=== PATIENT | female | born 1990 | race Caucasian/White ===

== ENCOUNTER → 2017-07-04 | Outpatient (CLI) | payer OTHER ==
[~2017-07-04] MED LIST: PREN29TA PO
== END ==
LOC: HPND 09:24
PROVIDERS: ATTEND Family Medicine
DX: Z36.2 Encounter for other antenatal screening follow-up (principal)
CPT/HCPCS: 76805

== ENCOUNTER 2017-07-20 10:39 | Emergency (ER) | payer OTHER ==
--- NOTE | 2017-07-20 11:41 | PD ---
HPI Chief Complaint dizziness Date Seen: Jul 20, 2017 Time Seen: 11:00 Travel History International Travel<30 Days: No Contact w/Intl Traveler<30Days: No Known Affected Area: No History of Present Illness HPI Mrs. Weiner is a at 30/0 weeks gestation presenting today due to concerns about dizziness. She states that yesterday evening she felt dizzy. She subsequently laid down and felt paralyzed. She states that the room was spinning. No tinnitus. States that this has never happened to her before. After her gave her a brownie she was able to sit up and the dizziness subsided. She also states that she has muscle cramps in her sides and in her legs. She has felt weak and tired. She endorses nausea, but no vomiting. No contractions, no vaginal bleeding, no dysuria, no chest pain, no shortness of breath. Positive movement. Weeks Gestation: 30 Para: 4 : 6 History Past Medical History Medical History: Denies Significant Hx Obstetric History Obstetric History all spontaneous in 2011 Past Surgical History Narrative Surgical [place] teeth extraction Family History Narrative Family History Mother- schizophrenia, Bipolar disorder, Hepatitis C, COPD, seizures Father- unsure of medical hx Social History Narrative Social History Lives with and kids Stay at home mom Denies alcohol, tobacco, or illicit drug use Alcohol Use: No Tobacco Use: No Substance Abuse: No Allergies-Medications (Allergen,Severity, Reaction): Coded Allergies: Penicillins (Verified Allergy, Severe, Anaphylaxis, 06/21/17) Uncoded Allergies: cillins (Allergy, Severe, Anaphylaxis, 06/21/17) Home Meds Active Scripts Vit-Iron Carbonyl ( Plus Iron 29-1 mg) 29 Mg Iron-1 Mg Tab, 1 TAB PO DAILY for Nutritional Supplement, #30 TAB 0 Refills Prov:Isma Grubbs MD, R3 06/30/17 Review of Systems General / Constitutional: No: Fever, Chills Eyes: No: Blurred Vision HENT: Vertigo, Lightheadedness Cardiovascular: No: Chest Pain or Discomfort Respiratory: No: Short of Breath Gastrointestinal: Nausea, No: Vomiting Genitourinary: No: Dysuria, Vaginal Bleeding Neurologic: Weakness, Dizziness, No: Syncope Physical Exam Narrative GENERAL: Well-nourished, well-developed patient. SKIN: Warm and dry. HEAD: Normocephalic and atraumatic. EYES: No scleral icterus. No injection or drainage. ENT: No nasal drainage noted. Mucous membranes pink. Airway patent. NECK: Supple, trachea midline. No JVD. CARDIOVASCULAR: Regular rate and rhythm without murmurs, gallops, or rubs. RESPIRATORY: Breath sounds equal bilaterally. No accessory muscle use. BREASTS: Bilateral exam showed no masses , no retractions, no nipple discharge. ABDOMEN/GI: Abdomen soft, non-tender, bowel sounds present, no rebound, no guarding Gravid to 30 weeks size FHT's: Category: 1 Baseline: 140s Reactive: yes Variability: moderate Decels: none EXTREMITIES: No cyanosis or edema. BACK: Nontender without obvious deformity. No CVA tenderness. NEUROLOGICAL: Awake and alert. Motor and sensory grossly within normal limits. Five out of 5 muscle strength in all muscle groups. Normal speech. Data Data Vital Signs Reviewed: Yes [facility] Medical Record Reviewed: Yes Plan Mrs. Weiner is a 26yo at 30/0 weeks gestation presenting with dizziness. Description of episode points to hypoglycemic origin vs vertigo Bedside glucose is 93. Orthostatic BPs: supine 125/78, standing 121/77 Urine dip is positive for trace ketones and protein of 30mg/dl FHT showing category 1 tracing. HR in the 150s -Will give oral hydration in the ED along with a snack -Zofran 4mg po ODT for nausea in the ED Will give a Rx for home Diagnosis Diagnosis: Primary Impression: Dizziness Additional Impression: 30 weeks gestation of Disposition: DISCHARGE HOME Condition: Stable Scripts Ondansetron Odt (Ondansetron Odt) 4 Mg Tab 4 MG SL Q6HR Y for Nausea/Vomiting, #30 TAB 0 Refills Prov: Norma Marrufo MD R1 07/20/17 Norma Marrufo MD R1 Jul 20, 2017 11:40
[2017-07-20] MEDS ORDERED: ONDANSETRON ODT 4 MG TAB PO ONE (11:45)
[2017-07-20] MEDS ORDERED: ONDA4TAB7 SL (11:52)
== END 2017-07-20 12:26 | disposition home or self-care (01) ==
LOC: HOBED 10:39
DX: O26.893 Other specified pregnancy related conditions, third trimester (principal); R42 Dizziness and giddiness; Z3A.30 30 weeks gestation of pregnancy
CPT/HCPCS: 82948; 99283

== ENCOUNTER 2017-08-17 20:46 | Emergency (ER) | payer OTHER ==
[~2017-08-17 20:46] MED LIST changes: +ONDA4TAB7 SL
--- NOTE | 2017-08-17 22:27 | PD ---
HPI Chief Complaint ctxs Date Seen: Aug 17, 2017 Time Seen: 22:20 Travel History International Travel<30 Days: No Contact w/Intl Traveler<30Days: No Known Affected Area: No History of Present Illness HPI pt. is a 26 y/o @ 34 weeks present w/ c/o ctxs. pt. states for last week having intermittent ctxs. ctxs now q14 min. some painful. +FM, no lof, some spotting. pt. cervix checked by nursing /igh/post. Weeks Gestation: 34 Para: 4 : 6 History Obstetric History Obstetric History , s/p x4, sab x 1 Past Surgical History Surgical History: No Previous Surgery Family History Family History: Negative Social History Alcohol Use: No Tobacco Use: No Substance Abuse: No Allergies-Medications (Allergen,Severity, Reaction): Coded Allergies: Penicillins (Verified Allergy, Severe, Anaphylaxis, 06/21/17) Uncoded Allergies: cillins (Allergy, Severe, Anaphylaxis, 06/21/17) Home Meds Active Scripts Ondansetron Odt (Ondansetron Odt) 4 Mg Tab, 4 MG SL Q6HR Y for Nausea/Vomiting, #30 TAB 0 Refills Prov:Norma Marrufo MD R1 07/20/17 Vit-Iron Carbonyl ( Plus Iron 29-1 mg) 29 Mg Iron-1 Mg Tab, 1 TAB PO DAILY for Nutritional Supplement, #30 TAB 0 Refills Prov:Isma Grubbs MD, R3 06/30/17 Review of Systems Except as stated in HPI: all other systems reviewed are Neg Physical Exam Narrative GENERAL: Well-nourished, well-developed patient. SKIN: Warm and dry. HEAD: Normocephalic and atraumatic. EYES: No scleral icterus. No injection or drainage. ENT: No nasal drainage noted. Mucous membranes pink. Airway patent. NECK: Supple, trachea midline. No JVD. CARDIOVASCULAR: Regular rate and rhythm without murmurs, gallops, or rubs. RESPIRATORY: Breath sounds equal bilaterally. No accessory muscle use. BREASTS: Bilateral exam showed no masses , no retractions, no nipple discharge. ABDOMEN/GI: Abdomen soft, non-tender, bowel sounds present, no rebound, no guarding Gravid GENITOURINARY: External Genitalia: intact and normal in appearance Cervix:posterior Dilatation: 1 Effacement: 50 Station:high Membranes:intact Uterine Contractions: irreg FHT's: Category:1 Reactive:+ Variability:mod Decels: none EXTREMITIES: No cyanosis or edema. BACK: Nontender without obvious deformity. No CVA tenderness. NEUROLOGICAL: Awake and alert. Motor and sensory grossly within normal limits. Five out of 5 muscle strength in all muscle groups. Normal speech. Data Data Vital Signs Reviewed: Yes [facility] Medical Record Reviewed: Yes Plan pt. is @ 34 weeks w/ ctxs not in labor. condition d/w pt. all ? answered. pt. to be d/c to home. pt. given precautions for return. all ? answered. f/u as sched. Diagnosis Diagnosis: Primary Impression: False labor before 37 completed weeks of gestation during in second trimester, antepartum Additional Impression: 34 weeks gestation of Disposition: 01 DISCHARGE HOME Vipin Sevilla Jr., MD Aug 17, 2017 22:27
== END 2017-08-17 23:32 | disposition home or self-care (01) ==
LOC: HOBED 20:46
DX: O47.03 False labor before 37 completed weeks of gestation, third trimester (principal); O26.853 Spotting complicating pregnancy, third trimester; Z3A.34 34 weeks gestation of pregnancy
CPT/HCPCS: 99284

== ENCOUNTER 2017-09-02 08:23 | Emergency (ER) | payer OTHER ==
--- NOTE | 2017-09-02 09:08 | PD ---
HPI Chief Complaint Abdominal pain, nausea, vomiting, leg cramps Date Seen: Sep 02, 2017 Time Seen: 08:56 Travel History International Travel<30 Days: No Contact w/Intl Traveler<30Days: No History of Present Illness HPI Patient is a 26-year-old at 36 weeks, EDC 09/27/17, who presents to the OB ED with one episode of vomiting, some contractions since July which have become more constant since 4 AM, and leg cramps. She has a medical history significant for iron deficiency anemia. has been uncomplicated and her PCP is Dr. Kirit Sanchez. She denies loss of fluid and vaginal bleeding. She states the contractions occur about every 7-15 minutes. She feels baby move. She has been able to keep down Sprite since her vomiting episode, and she denies nausea now History Past Medical History Narrative Medical Anemia Obstetric History Obstetric History G1: 2010, 38 weeks, 7 pound male vaginal delivery in [place] G2: 2011, 13 week spontaneous G3: 2012, 26 week baby with A. fib born vaginally in [place], 6 pound male(? Possibly this was 36 weeks) G4: 1441 week 9 pound male born vaginally in [place] G5: September 2016, 40 week 7 pound female born vaginally in [facility] Reportedly has had GBS and previous but no GBS bacteremia in Past Surgical History Narrative Surgical Reportedly none Family History Narrative Family History None reported Social History Alcohol Use: No Tobacco Use: No Substance Abuse: No Allergies-Medications (Allergen,Severity, Reaction): Coded Allergies: Penicillins (Verified Allergy, Severe, Anaphylaxis, 06/21/17) Uncoded Allergies: cillins (Allergy, Severe, Anaphylaxis, 06/21/17) Home Meds Active Scripts Ondansetron Odt (Ondansetron Odt) 4 Mg Tab, 4 MG SL Q6HR Y for Nausea/Vomiting, #30 TAB 0 Refills Prov:Norma Marrufo MD R1 07/20/17 Vit-Iron Carbonyl ( Plus Iron 29-1 mg) 29 Mg Iron-1 Mg Tab, 1 TAB PO DAILY for Nutritional Supplement, #30 TAB 0 Refills Prov:Isma Grubbs MD, R3 06/30/17 Review of Systems General / Constitutional: No: Fever Eyes: No: Diploplia, Blurred Vision, Visual changes HENT: No: Headaches, Lightheadedness Cardiovascular: No: Chest Pain or Discomfort, Palpitations Respiratory: No: Short of Breath Gastrointestinal: Nausea, Vomiting, Abdominal Pain, No: Diarrhea Genitourinary: No: Urgency, Dysuria Musculoskeletal: No: Limited ROM, Weakness Skin: No Rash, No Itching Neurologic: No: Weakness, Dizziness, Syncope Psychiatric: No: Anxiety, Depression Physical Exam Narrative GENERAL: Well-nourished, well-developed female in no apparent distress. SKIN: Warm and dry. HEAD: Normocephalic and atraumatic. EYES: No scleral icterus. No injection or drainage. ENT: No nasal drainage noted. Mucous membranes pink. Airway patent. NECK: Supple, trachea midline. No JVD. CARDIOVASCULAR: Regular rate and rhythm without murmurs, gallops, or rubs. RESPIRATORY: Breath sounds equal bilaterally. No accessory muscle use. ABDOMEN/GI: Abdomen soft, non-tender, bowel sounds present, no rebound, no guarding Gravid to 36 weeks size GENITOURINARY: External Genitalia: intact and normal in appearance Cervix: 0-1/50/-2 Presentation: Vertex Membranes: Intact Uterine Contractions: Absent FHT's: Category: 1 Baseline: 140s Reactive: to 160s Variability: mod Decels: absent EXTREMITIES: No cyanosis or edema. BACK: Nontender without obvious deformity. No CVA tenderness. NEUROLOGICAL: Awake and alert. Motor and sensory grossly within normal limits. Five out of 5 muscle strength in all muscle groups. Normal speech. Data Data Vital Signs Reviewed: Yes (BP 136/81) Orders Orders Vital Signs (Adult) .ON ADMISSION (09/02/17 08:53) ^ Labor Status (09/02/17 08:53) ^ Non Stress Test (09/02/17 08:53) ^ Hydration (09/02/17 08:53) Labs GBS unknown, collected at her PCP visit on 08/28 [facility] Medical Record Reviewed: Yes Interpretation(s) Patient is a 26-year-old at 36 and 2/7 weeks. She has notably dark urine but no symptoms. She says she had one episode of vomiting after eating pork chop and no recurrence. Suspect dehydration causing [place] contractions. Patient has examined and no significant dilation noted. She is counseled on labor signs and symptoms. PO hydration is encouraged and offered. Patient will be monitored for 30 minutes on toco and heart monitoring and if continues to be a category 1 will discharge home. Patient to return to ED for any vaginal bleeding, gush of fluid, decreased movement. She has a PCP appointment scheduled on 09/05. Plan DC to home with PCP follow-up 09/05/2017. H&H ordered as outpatient, should be followed up given history of anemia Diagnosis Diagnosis: Primary Impression: [place]' contraction Additional Impression: Dehydration, moderate Disposition: 01 DISCHARGE HOME Condition: Stable Patient Instructions: Abdominal Pain in (ED), Early Labor Signs (ED) , Nausea and Vomiting in (ED) Saba Lane MD Sep 02, 2017 09:08
== END 2017-09-02 09:29 | disposition home or self-care (01) ==
LOC: HOBED 08:23
DX: O47.03 False labor before 37 completed weeks of gestation, third trimester (principal); O26.893 Other specified pregnancy related conditions, third trimester; E86.0 Dehydration; Z3A.36 36 weeks gestation of pregnancy; Z88.0 Allergy status to penicillin
CPT/HCPCS: 59025

== ENCOUNTER 2017-09-19 13:19 | Emergency (ER) | payer OTHER ==
--- NOTE | 2017-09-19 13:36 | PD ---
HPI Travel History International Travel<30 Days: No Contact w/Intl Traveler<30Days: No (Saba Lane MD R2) History of Present Illness HPI Patient is a 26-year-old at 39 weeks, EDC 09/27/17, who presents to the OB ED with possible leakage of fluid at 12pm. She was straining to have bowel movement and felt a small gush. This happened twice, small volume both times. has been uncomplicated and her PCP is Dr. Kirit Sanchez. She feels baby move. She was seen in ED 09/02 for vomiting and has seen Dr. Sanchez in the last week. GBS: negative on 08/28/2017. Patient of note states she was GBS positive in her previous pregnancies, with GBS bacteriuria in her most recent . She states she had cultures sensitive to Vancomycin which is what she received. Patient does request Vancomycin intrapartum "to be safe". (Saba Lane MD R2) History Past Medical History Narrative Medical anemia (Saba Lane MD R2) Obstetric History Obstetric History G1: 2010, 38 weeks, 7 pound male vaginal delivery in [place] G2: 2011, 13 week spontaneous G3: 2012, 26 week baby with A. fib born vaginally in [place], 6 pound male(? Possibly this was 36 weeks) G4: 2013, 41 week 9 pound male born vaginally in [place] G5: September 2016, 40 week 7 pound female born vaginally in [facility] Reportedly has had GBS in previous pregnancies but no GBS bacteremia in any infants. Was treated with Vancomycin in 2017 (culture was sensitive to this). GBS NEGATIVE 08/28/2017 (Saba Lane MD R2) Past Surgical History Surgical History: No Previous Surgery (Saba Lane MD R2) Family History Family History: Negative (Saba Lane MD R2) Social History Alcohol Use: No Tobacco Use: No Substance Abuse: No (Saba Lane MD R2) Allergies-Medications (Allergen,Severity, Reaction): Coded Allergies: Penicillins (Verified Allergy, Severe, Anaphylaxis, 06/21/17) Uncoded Allergies: cillins (Allergy, Severe, Anaphylaxis, 06/21/17) Home Meds Active Scripts Ondansetron Odt (Ondansetron Odt) 4 Mg Tab, 4 MG SL Q6HR Y for Nausea/Vomiting, #30 TAB 0 Refills Prov:Norma Marrufo MD R1 07/20/17 Vit-Iron Carbonyl ( Plus Iron 29-1 mg) 29 Mg Iron-1 Mg Tab, 1 TAB PO DAILY for Nutritional Supplement, #30 TAB 0 Refills Prov:Isma Grubbs MD R3 06/30/17 Review of Systems General / Constitutional: No: Fever, Chills Eyes: No: Diploplia, Blurred Vision, Visual changes HENT: No: Headaches Cardiovascular: No: Chest Pain or Discomfort, Palpitations Respiratory: No: Cough, Short of Breath Gastrointestinal: Abdominal Pain, No: Nausea, Vomiting, Diarrhea Genitourinary: Dribbling, No: Urgency, Frequency, Dysuria Musculoskeletal: No: Weakness, Edema Skin: No Rash, No Itching Neurologic: No: Weakness, Dizziness, Syncope (Saba Lane MD R2) Physical Exam Narrative GENERAL: Well-nourished, well-developed female in no apparent distress. SKIN: Warm and dry. HEAD: Normocephalic and atraumatic. EYES: No scleral icterus. No injection or drainage. ENT: No nasal drainage noted. Mucous membranes pink. Airway patent. NECK: Supple, trachea midline. No JVD. CARDIOVASCULAR: Regular rate and rhythm without murmurs, gallops, or rubs. RESPIRATORY: Breath sounds equal bilaterally. No accessory muscle use. ABDOMEN/GI: Abdomen soft, non-tender, bowel sounds present, no rebound, no guarding Gravid, at least 38 weeks size noted. GENITOURINARY: External Genitalia: intact and normal in appearance Cervix: 2/50/-2 Presentation: Vertex Membranes: unknown, Amnisure pending Uterine Contractions: Absent FHT's: Category: 1 Baseline: 150s Reactive: to 160s Variability: mod Decels: absent EXTREMITIES: No cyanosis or edema. BACK: Nontender without obvious deformity. No CVA tenderness. NEUROLOGICAL: Awake and alert. Motor and sensory grossly within normal limits. Five out of 5 muscle strength in all muscle groups. Normal speech. (Saba Lane MD R2) Data Data Vital Signs Reviewed: Yes (113/74, BP 91) Orders Orders Vital Signs (Adult) .ON ADMISSION (09/19/17 13:27) ^ Labor Status (4/10/18 13:27) ^ Non Stress Test (09/19/17 13:27) ^ Hydration (09/19/17 13:27) Group B Strep: Negative (08/28/2017) (Saba Lane MD R2) MDM Narrative Course / MDM Patient is a 26-year-old at 38 and 5/7 weeks. Amnisure negative. Suspect early labor. Labor signs counseling given. Discharge to home. Intrauterine : Category 1 tracing Cervix 2/50/-2, some change since exam 09/02/17 in [facility] U/A pending, will call pt for results and treat if indicated. Will send mandatory culture, to f/u given pt history. Routine care, f/u with Dr. Sanchez in 3-5 days GBS negative: collected 08/28/2017. Pt did request Vancomycin given she was GBS positive in 2017. Pt counseled, no intrapartum antibiotics indicated SDW Dr. April Montgomery (Saba Lane MD R2) Attending Attestation Patient seen and examined, clarification, she is in early LATENT labor, membranes in tact. Case reviewed and discussed with Dr Feliciano Lane. Urine Cx pending, to fu with PCP for results and ongoing care. Reviewed indications to return to L&D. Agree with plan of care as discussed with me and documented in the resident note. (April Montgomery MD) Diagnosis Diagnosis: Primary Impression: False labor after 37 completed weeks of gestation Disposition: 01 DISCHARGE HOME Condition: Stable Patient Instructions: Having Your Baby: The Labor Process (GEN) Saba Lane MD R2 Sep 19, 2017 13:36 April Montgomery MD Sep 19, 2017 17:07
[2017-09-19 13:51] VITALS: BP 113/74; PULSE 91
[2017-09-19 13:55] VITALS: RESP 18
[2017-09-19 14:26] LABS: BACTERIA, URINE RARE /hpf; BILIRUBIN, URINE NEG (NEG); BLOOD, URINE NEG (NEG); GLUCOSE,URINE NEG (NEG); KETONE, URINE NEG (NEG); MUCUS URINE FEW /lpf (OCC); NITRITE,URINE NEG (NEG); PH, URINE 6.5 (5.0-8.5); SQUAMOUS EPITHELIAL CELL URINE 1 /hpf (0-5); URINE COLOR LIGHT-YELLOW (YELLW/STRAW); URINE LEUKOCYTE ESTERASE NEG (NEG)
== END 2017-09-19 15:34 | disposition home or self-care (01) ==
LOC: HOBED 13:19
DX: O47.1 False labor at or after 37 completed weeks of gestation (principal); O99.013 Anemia complicating pregnancy, third trimester; Z3A.39 39 weeks gestation of pregnancy
CPT/HCPCS: 81001; 84112; 87086; 99284

== ENCOUNTER 2017-09-29 09:18 | Inpatient (IN) | payer OTHER ==
[~2017-09-29] VITALS: Ht 152.4 cm; Wt 87.0 kg
[2017-09-29] VITALS (56 sets, daily range): BP systolic 100–143; BP diastolic 57–94; PULSE 70–160; RESP 16–18; TEMP 97.8–98.4
[2017-09-29] MEDS ORDERED: LIDOCAINE HCL 1% 50 ML VIAL INFIL PRN (11:30)
[2017-09-29] MEDS ORDERED: OXYTOCIN 30 UNITS-500ML PREMIX 500 ML IV PRN (11:30)
[2017-09-29] MEDS ORDERED: MINERAL OIL 10 ML VIAL TOPICAL PRN (11:30)
[2017-09-29] MEDS ORDERED: LACTATED RINGER'S 1000 ML INJ 1,000 ML IV SCH (11:30)
[2017-09-29] MEDS ORDERED: LACTATED RINGER'S 1000 ML INJ 1,000 ML IV PRN (11:30)
[2017-09-29] MEDS ORDERED: CITRIC ACID-SODIUM CITRATE LIQ 30 ML UDC PO SCH (11:30)
[2017-09-29] MEDS ORDERED: LIDOCAINE HCL 1% 50 ML VIAL I-DERMAL PRN (11:30)
[2017-09-29] MEDS ORDERED: OXYTOCIN 30 UNITS-500ML PREMIX 500 ML IV ONE (11:30)
[2017-09-29] MEDS ORDERED: SODIUM CHLORID 0.9% 500 ML INJ 500 ML IV PRN (11:30)
--- NOTE | 2017-09-29 11:31 | HHI.HP ---
HPI Chief Complaint induction for oligo Date Seen: Sep 29, 2017 Time Seen: 11:00 (Nabil Sanchez MD R2) Travel History International Travel<30 Days: No Contact w/Intl Traveler<30Days: No (Nabil Sanchez MD R2) History of Present Illness HPI 26 y/o at 40/2 weeks presents after post-dates ultrasound for oligohydramnios for induction. Pt denies any complaints today. Denies any vaginal bleeding, loss of fluids. Endorses occasional contractions. Endorses movement. Denies any headache, chest pain, SOB, blurry vision, dysuria, leg pain/swelling. Weeks Gestation: 40 Para: 4 : 6 (Nabil Sanchez MD R2) History Past Medical History Medical History: Denies Significant Hx (Nabil Sanchez MD R2) Obstetric History Obstetric History G1: 2010, 38 weeks, 7 pound male vaginal delivery in [place] G2: 2011, 13 week spontaneous G3: 2012, 26 week baby with A. fib born vaginally in [place], 6 pound male(? Possibly this was 36 weeks) G4: 2013, 41 week 9 pound male born vaginally in [place] G5: September 2016, 40 week 7 pound female born vaginally in [facility] (Nabil Sanchez MD R2) Past Surgical History Surgical History: No Previous Surgery (Nabil Sanchez MD R2) Family History Family History: Negative (Nabil Sanchez MD R2) Social History Alcohol Use: No Tobacco Use: No Substance Abuse: No (Nabil Sanchez MD R2) Allergies-Medications (Allergen,Severity, Reaction): Coded Allergies: Penicillins (Verified Allergy, Severe, Anaphylaxis, 06/21/17) Uncoded Allergies: cillins (Allergy, Severe, Anaphylaxis, 06/21/17) Home Meds Active Scripts Ondansetron Odt (Ondansetron Odt) 4 Mg Tab, 4 MG SL Q6HR Y for Nausea/Vomiting, #30 TAB 0 Refills Prov:Norma Marrufo MD R1 07/20/17 Vit-Iron Carbonyl ( Plus Iron 29-1 mg) 29 Mg Iron-1 Mg Tab, 1 TAB PO DAILY for Nutritional Supplement, #30 TAB 0 Refills Prov:Isma Grubbs MD R3 06/30/17 Review of Systems General / Constitutional: Weight Loss, No: Fever, Chills, Other Eyes: No: Diploplia, Blurred Vision, Visual changes, Pain, Photophobia HENT: No: Headaches, Vertigo, Lightheadedness Cardiovascular: No: Irregular Rhythm, Chest Pain or Discomfort, Palpitations, Tachycardia, Syncope, Varicosities, Edema, Cyanosis Respiratory: No: Cough, Short of Breath, Other Gastrointestinal: No: Nausea, Vomiting, Diarrhea Genitourinary: No: Dysuria, Decreased Urinary Output, Oliguria, Hesitancy, Dribbling Musculoskeletal: No: Limited ROM, Weakness, Cramping, Edema, Pain Skin: No Rash, No Itching, No Dryness, No Lumps, No Change in Pigmentation, No Change in Nails, No Alopecia, No Lesions Neurologic: No: Weakness, Dizziness, Syncope, Focal Abnormalities, Coordination Problem, Headache, Slurred Speech, Seizures Psychiatric: No: Depression, Suicidal Ideations, Homicidal Ideation Endocrine: No: Heat Intolerance, Cold Intolerance, Polydipsia, Polyuria, Other (Nabil Sanchez MD R2) Physical Exam Narrative GENERAL: Well-nourished, well-developed patient. SKIN: Warm and dry. HEAD: Normocephalic and atraumatic. EYES: No scleral icterus. No injection or drainage. ENT: No nasal drainage noted. Mucous membranes pink. Airway patent. NECK: Supple, trachea midline. No JVD. CARDIOVASCULAR: Regular rate and rhythm without murmurs, gallops, or rubs. RESPIRATORY: Breath sounds equal bilaterally. No accessory muscle use. ABDOMEN/GI: Abdomen soft, non-tender, bowel sounds present, no rebound, no guarding Gravid to 40 weeks size GENITOURINARY: External Genitalia: intact and normal in appearance Cervix: soft Dilatation: 2-3 Effacement: 50 Station: -2 Presentation: vertex Membranes: intact Uterine Contractions: occasional FHT's: Category: 1 Baseline: 150 Reactive: yes Variability: moderate Decels: none EXTREMITIES: No cyanosis or edema. BACK: Nontender without obvious deformity. No CVA tenderness. NEUROLOGICAL: Awake and alert. Motor and sensory grossly within normal limits. Five out of 5 muscle strength in all muscle groups. Normal speech. (Nabil Sanchez MD R2) Caprini VTE Risk Assessment Caprini VTE Risk Assessment: No/Low Risk (score <= 1) Caprini Risk Assessment Model Point Value = 1 Point Value = 2 Point Value = 3 Point Value = 5 Age 41-60 Minor surgery BMI > 25 kg/m2 Swollen legs Varicose veins or History of unexplained or recurrent spontaneous Oral contraceptives or hormone replacement Sepsis (< 1 month) Serious lung disease, including pneumonia (< 1 month) Abnormal pulmonary function Acute myocardial infarction Congestive heart failure (< 1 month) History of inflammatory bowel disease Medical patient at bed rest Age 61-74 Arthroscopic surgery Major open surgery (> 45 min) Laparoscopic surgery (> 45 min) Malignancy Confined to bed (> 72 hours) Immobilizing plaster cast Central venous access Age >= 75 History of VTE Family history of VTE Factor V Leiden Prothrombin 52752M Lupus anticoagulant Anticardiolipin antibodies Elevated serum homocysteine Heparin-induced thrombocytopenia Other congenital or acquired thrombophilia Stroke (< 1 month) Elective arthroplasty Hip, pelvis, or leg fracture Acute spinal cord injury (< 1 month) Prophylaxis Regimen Total Risk Factor Score Risk Level Prophylaxis Regimen 0-1 Low Early ambulation 2 Moderate Order ONE of the following: *Sequential Compression Device (SCD) *Heparin 5000 units SQ BID 3-4 Higher Order ONE of the following medications: *Heparin 5000 units SQ TID *Enoxaparin/Lovenox 40 mg SQ daily (WT < 150 kg, CrCl > 30 mL/min) *Enoxaparin/Lovenox 30 mg SQ daily (WT < 150 kg, CrCl > 10-29 mL/min) *Enoxaparin/Lovenox 30 mg SQ BID (WT < 150 kg, CrCl > 30 mL/min) AND/OR *Sequential Compression Device (SCD) 5 or more Highest Order ONE of the following medications: *Heparin 5000 units SQ TID (Preferred with Epidurals) *Enoxaparin/Lovenox 40 mg SQ daily (WT < 150 kg, CrCl > 30 mL/min) *Enoxaparin/Lovenox 30 mg SQ daily (WT < 150 kg, CrCl > 10-29 mL/min) *Enoxaparin/Lovenox 30 mg SQ BID (WT < 150 kg, CrCl > 30 mL/min) AND *Sequential Compression Device (SCD) (Nabil Sanchez MD R2) Data Data Vital Signs Reviewed: Yes Orders Orders Us Ob Bpp W Repeat (09/29/17 ) Admit To Inpatient (09/29/17 ) Code Status (09/29/17 11:17) Vital Signs (Adult) .Per protocol (09/29/17 11:17) Activity Oob Ad Estrella (09/29/17 11:17) Heart (09/29/17 11:17) Amnioinfusion (09/29/17 11:17) Urinary Catheter Management .ONCE (09/29/17 11:17) Lactated Ringer's 1000 Ml Inj (Lr 1000 M (09/29/17 11:30) Lactated Ringer's 1000 Ml Inj (Lr 1000 M (09/29/17 11:30) Sodium Chlorid 0.9% 500 Ml Inj (Ns 500 M (09/29/17 11:30) Sodium Chlor 0.9% 1000 Ml Inj (Ns 1000 M (09/29/17 11:50) Lidocaine 1% Inj (50 Ml) (Xylocaine 1% I (09/29/17 11:30) Citric Acid-Sodium Citrate Liq (Bicitra (09/29/17 11:30) Fentanyl Inj (Fentanyl Inj) (09/29/17 11:30) Fentanyl Inj (Fentanyl Inj) (09/29/17 11:30) Complete Blood Count With Diff (09/29/17 11:17) Hold Clot (09/29/17 11:17) Abo/Rh Blood Type (09/29/17 11:17) Urinalysis - C+S If Indicated (09/29/17 11:17) Drug Screen, Random Urine (09/29/17 11:17) Ob/Psych Drug Screen, Urine (09/29/17 11:17) Resp Oxygen Non Rebreathe Mask (09/29/17 ) ^ Epidural / Intrathecal Infus (09/29/17 11:17) Oxytocin 30 Units-500ml Premix (Pitocin (09/29/17 11:30) Lidocaine 1% Inj (50 Ml) (Xylocaine 1% I (09/29/17 11:30) Light Mineral Oil (Muri-Lube Oil) (09/29/17 11:30) Inpatient Certification (09/29/17 ) Specimen To Be Collected PRN (09/29/17 11:17) Specimen To Be Collected PRN (09/29/17 11:17) Diet Npo (09/29/17 Lunch) Vancomycin Inj (Vancomycin Inj) (09/29/17 11:30) ^ Non Stress Test (09/29/17 11:30) Response To Medication .Post New Med Administration, Reaction (09/29/17 11:30) ^ Discontinue Medication (09/29/17 11:30) Oxytocin Drip (2-2-30) (09/29/17 11:30) Group B Strep: Negative (been positive x4 previously) (Nabil Sanchez MD R2) Assessment/Plan Assessment and Plan 26 y/o presents for induction due to oligo. ZULEMA on ultrasound of 5 Category 1 FHT Cervical exam: 2-/-2 -Admit to L&D -Will start Pitocin -GBS negative, but with previous positives x4 with resistance, will treat with Vancomycin -Continuous FHT -Expectant management -Anticipate vaginal delivery (Nabil Sanchez MD R2) Attending Attestation I was present for clinton components of history, physical and medical decision making. Pt induced for oligohydramnios and is postdates. Favorable cervix - pitocin has been ordered. GBS negative this , but GBS positive four prior pregnancies - will treat with vancomycin (PCN allergy) Anticipate vaginal delivery. (Lolly Moran MD) Nabil Sanchez MD R2 Sep 29, 2017 11:31 Lolly Moran MD Sep 30, 2017 07:22
[2017-09-29] MEDS ORDERED: SODIUM CHLOR 0.9% 1000 ML INJ 1,000 ML IV PRN (11:50)
[2017-09-29 11:54] LABS: AUTOMATED NEUTROPHIL # 4.5 TH/MM3 (1.8-7.7); BASOPHIL % 0.4 % (0.0-2.0); EOSINOPHIL # 0.1 TH/MM3 (0-0.4); EOSINOPHIL % 0.8 % (0.0-4.0); HEMATOCRIT 32.1 % (35.0-46.0); HEMOGLOBIN 10.8 GM/DL (11.6-15.3); LYMPH % 21.9 % (9.0-44.0); LYMPHOCYTE # 1.4 TH/MM3 (1.0-4.8); MEAN CELL VOLUME 79.2 FL (80.0-100.0); MEAN CORPUSCULAR HEMOGLOBIN 26.7 PG (27.0-34.0); MEAN CORPUSCULAR HGB CONC 33.7 % (32.0-36.0); MEAN PLATELET VOLUME 8.1 FL (7.0-11.0); MONO % 8.3 % (0.0-8.0); MONOCYTE # 0.5 TH/MM3 (0-0.9); NEUT % 68.6 % (16.0-70.0); PLATELET COUNT 180 TH/MM3 (150-450); RED BLOOD COUNT 4.05 MIL/MM3 (4.00-5.30); RED CELL DISTRIBUTION WIDTH 15.1 % (11.6-17.2); WHITE BLOOD COUNT 6.6 TH/MM3 (4.0-11.0)
[2017-09-29 12:03] LABS: BILIRUBIN, URINE NEG (NEG); BLOOD, URINE NEG (NEG); GLUCOSE,URINE NEG (NEG); KETONE, URINE NEG (NEG); MUCUS URINE FEW /lpf (OCC); NITRITE,URINE NEG (NEG); PH, URINE 6.5 (5.0-8.5); SQUAMOUS EPITHELIAL CELL URINE 1 /hpf (0-5); URINE COLOR LIGHT-YELLOW (YELLW/STRAW); URINE LEUKOCYTE ESTERASE NEG (NEG)
[2017-09-29] MEDS ORDERED: VANCOMYCIN INJ 1 GM in SODIUM CHLORIDE 0.9% INJ 250 ML IV SCH (13:00)
[2017-09-29] MEDS ORDERED: VANCOMYCIN 1,000 MG/NS 250 ML IV SCH ×2 (13:00)
[2017-09-29] MEDS ORDERED: ePHEDrine/NS 25 MG/5 ML SYRINGE ONE (13:29)
[2017-09-29] MEDS ORDERED: fentaNYL 2MCG-BUPIV 0.125% INJ 100 ML ONE (13:29)
--- NOTE | 2017-09-29 14:16 | PD.LABORPN ---
Subjective Subjective Pt lying in bed. Feeling contractions, painful. Denies any new concerns. No other complaints at this time. Objective Vital Signs Vital Signs Date Time Temp Pulse Resp B/P (MAP) Pulse Ox O2 Delivery O2 Flow Rate FiO2 09/29/17 13:57 106 130/85 (100) 09/29/17 13:56 18 09/29/17 13:56 98.1 09/29/17 13:30 89 131/79 (96) 09/29/17 13:17 115 134/63 (86) 09/29/17 13:00 75 115/73 (87) 09/29/17 12:49 74 124/68 (86) 09/29/17 12:30 81 122/75 (91) 09/29/17 12:25 16 09/29/17 12:16 88 121/67 (85) 09/29/17 12:14 80 109/65 (80) Objective Pelvic Exam: Cervix: soft,mid Dilatation: 3 Effacement: 75 Station: -2 Presentation: vertex Membranes: AROM at 2pm Uterine Contractions: q2-3 minutes FHT's: Category: 1 Baseline: 150 Reactive: yes Variability: moderate Decels: none Weeks Gestation: 40 Artificial rupture of membrane: Yes Artificial ROM date: Sep 29, 2017 Artifical ROM time: 14:00 Assessment/Plan Assessment and Plan 26 y/o in latent labor Category 1 FHT Cervical exam: 3/75/-2 AROM performed-clear fluid Pt requests epidural -Continue Pitocin -Continuous FHT -Expectant management -Anticipate vaginal delivery Nabil Sanchez MD R2 Sep 29, 2017 14:16
[2017-09-29] MEDS ORDERED: fentaNYL 2MCG-BUPIV 0.125% 100 ML EPIDURAL SCH (16:00)
[2017-09-29] MEDS ORDERED: ePHEDrine/NS 25 MG/5 ML SYRINGE IV PUSH PRN (16:00)
[2017-09-29] MEDS ORDERED: NO SYSTEM NARCOTICS PRN (16:00)
[2017-09-29] MEDS ORDERED: DO NOT ADMINISTER ANTICOAGULANTS PRN (16:00)
--- NOTE | 2017-09-29 18:19 | PD.OB.DELI ---
Weeks gestation: 40 Medical induction of labor?: Yes Medical induction start date: Sep 29, 2017 Medical induction start time: 11:00 Artificial rupture of membrane: Yes Artificial ROM date: Sep 29, 2017 Artifical ROM time: 14:00 Anesthesia: Epidural Episiotomy: None Vaginal Delivery: Normal Presentation: Occiput anterior Nuchal Cord: None Delayed cord clamping (45 sec): Yes : Male Delivery date: Sep 29, 2017 Delivery time: 18:07 One Minute : 8 Five Minute : 9 Placenta: Spontaneous delivery, Intact, 3 vessel cord Laceration: No lacerations Estimated blood loss: 200ml Additional Information Spontaneous vaginal delivery without complications. Healthy baby boy delivered. Placenta delivered intact. Assisted by Dr. Moran (Nabil Sanchez MD R2) Additional Information Attending note: I was present for entire delivery of baby and placenta. [place] is thriving. (Lolly Moran MD) Nabil Sanchez MD R2 Sep 29, 2017 18:19 Lolly Moran MD Sep 30, 2017 07:22
[2017-09-29] MEDS ORDERED: SODIUM CHLORIDE 0.9% FLUSH 10 ML FLUSH IV FLUSH PRN (18:30)
[2017-09-29] MEDS ORDERED: OXYTOCIN 30 UNITS-500ML PREMIX 500 ML IV SCH (18:30)
[2017-09-29] MEDS ORDERED: ONDANSETRON ODT 4 MG TAB PO PRN (18:30)
[2017-09-29] MEDS ORDERED: BENZOCAINE 20% TOPICAL SPRAY 60 ML CAN TOPICAL PRN (18:30)
[2017-09-29] MEDS ORDERED: ACETAMINOPHEN 325 MG TAB PO PRN (18:30)
[2017-09-29] MEDS ORDERED: ZOLPIDEM TARTRATE 5 MG TAB PO PRN (18:30)
[2017-09-29] MEDS ORDERED: ALUMINUM/MAGNESIUM/SIMETH 30 ML CUP PO PRN (18:30)
[2017-09-29] MEDS ORDERED: DOCUSATE SODIUM 50 MG/SENNA 8.6 MG TAB PO PRN (18:30)
[2017-09-29] MEDS: IBUPROFEN 800 MG TAB PO PRN (18:43)
[2017-09-29] MEDS ORDERED: DIPHTH/TETANUS/ACEL PERTUSSIS (BOOSTER) 0.5 ML VIAL/PFS IM ONE (20:00)
[2017-09-29] MEDS ORDERED: MEASLES, MUMPS, RUBELLA VACCINE 0.5 ML VIAL SQ ONE (20:00)
[2017-09-29] MEDS ORDERED: SODIUM CHLORIDE 0.9% FLUSH 10 ML FLUSH IV FLUSH SCH (21:00)
[2017-09-29] MEDS: WITCH HAZEL 50%/GLYCERIN 12.5% 40 PAD JAR TOPICAL PRN (21:27)
[2017-09-29] MEDS: oxyCODONE/ACETAMINOPHEN 5 MG/325 MG TAB PO PRN (23:25)
[2017-09-30] MEDS: oxyCODONE/ACETAMINOPHEN 5 MG/325 MG TAB PO PRN ×5 (01:04→19:26)
[2017-09-30] MEDS: IBUPROFEN 800 MG TAB PO PRN (02:47)
[2017-09-30 08:31] VITALS: BP 129/79; PULSE 80; RESP 18; TEMP 97.7
--- NOTE | 2017-09-30 09:51 | HHI.OB ---
Subjective Post Day: 1 Remarks day #1. AFVSS overnight. Having a lot of back pain. Did require 3 attempts at her epidural yesterday. She states it has a lot of pain when walking. Decreased lochia. Denies dysuria. No breast tenderness. She is feeding the baby via breast. Appetite good. No nausea or vomiting. Endorses flatus. Denies bowel movement. Denies calf pain, shortness of breath, or cough. Otherwise, she is doing well this morning and has no other complaints. (Nabil Sanchez MD R2) Objective Vitals/I&O Vital Signs Date Time Temp Pulse Resp B/P (MAP) Pulse Ox O2 Delivery O2 Flow Rate FiO2 09/30/17 08:31 97.7 80 18 129/79 (96) 09/29/17 20:25 98.4 77 18 119/69 (86) 09/29/17 19:45 81 09/29/17 19:45 113/66 (82) 09/29/17 19:30 76 113/60 (77) 09/29/17 19:19 97.8 18 09/29/17 19:15 84 115/73 (87) 09/29/17 19:10 18 09/29/17 19:00 70 106/59 (75) 09/29/17 18:48 73 18 102/66 (78) 09/29/17 18:47 82 09/29/17 18:46 18 09/29/17 18:30 75 122/64 (83) 09/29/17 18:26 86 18 121/60 (80) 09/29/17 18:25 98.4 09/29/17 18:25 18 09/29/17 18:01 143/89 (107) 09/29/17 17:51 84 135/80 (98) 09/29/17 17:50 91 09/29/17 17:45 102 130/77 (94) 09/29/17 17:45 102 09/29/17 17:40 78 09/29/17 17:40 86 117/62 (80) 09/29/17 17:36 87 121/57 (78) 09/29/17 17:35 89 09/29/17 17:34 98.3 18 09/29/17 17:31 93 126/70 (88) 4/20/18 17:30 92 18 17:25 104 18 17:20 85 09/29/17 17:20 94 133/80 (97) 18 17:19 90 132/62 (85) 18 17:15 97 09/29/17 17:14 102 135/83 (100) 09/29/17 17:10 109 09/29/17 17:00 92 123/82 (96) 09/29/17 16:30 94 113/91 (98) 09/29/17 16:06 160 123/72 (89) 09/29/17 16:03 98.3 18 09/29/17 16:00 86 112/60 (77) 09/29/17 15:56 90 100/82 (88) 09/29/17 15:51 73 129/63 (85) 09/29/17 15:45 83 128/88 (101) 09/29/17 15:40 75 119/71 (87) 09/29/17 15:36 101 123/72 (89) 09/29/17 15:31 84 09/29/17 15:30 99 18 15:25 80 09/29/17 15:25 100 139/66 (90) 09/29/17 15:20 94 09/29/17 15:20 93 133/78 (96) 09/29/17 15:15 109 09/29/17 15:15 110 142/90 (107) 09/29/17 15:10 120 09/29/17 15:05 102 09/29/17 15:03 146 124/94 (104) 09/29/17 13:57 106 130/85 (100) 09/29/17 13:56 18 09/29/17 13:56 98.1 09/29/17 13:30 89 131/79 (96) 09/29/17 13:17 115 134/63 (86) 09/29/17 13:00 75 115/73 (87) 09/29/17 12:49 74 124/68 (86) 09/29/17 12:30 81 122/75 (91) 09/29/17 12:25 16 09/29/17 12:16 88 121/67 (85) 4/20/18 12:14 80 109/65 (80) Objective Remarks GENERAL: Well-nourished, well-developed patient. CARDIOVASCULAR: Regular rate and rhythm without murmurs, gallops, or rubs. RESPIRATORY: Breath sounds equal bilaterally. No accessory muscle use. ABDOMEN/GI: Abdomen soft, non-tender. Fundus: Firm, non-tender at umbilicus. GENITOURINARY: Light to moderate bleeding. BACK: Paraspinal tenderness bilaterally. Muscle spasms present. EXTREMITIES: No cyanosis or edema, non-tender, without signs of DVT. Medications and IVs Current Medications Medications (Trade) Dose Ordered Sig/Leoncio Route Start Time Stop Time Status Last Admin Lactated Ringer's 1,000 ml @ 125 mls/hr Q8H IV 09/29/17 11:30 09/29/17 11:48 Lactated Ringer's 1,000 ml @ 3,000 mls/hr Q20M PRN IV 09/29/17 11:30 Sodium Chloride 500 ml @ 1,000 mls/hr ONCE PRN IV 09/29/17 11:30 10/02/17 11:29 Sodium Chloride 1,000 ml @ 100 mls/hr Q10H PRN IV 09/29/17 11:50 (Xylocaine 1% Inj (50 ml)) 0.1 ml UNSCH X1 PRN I-DERMAL 09/29/17 11:30 10/02/17 11:29 (Bicitra Liq) 30 ml FLOOR ATTENDANT PO 09/29/17 11:30 10/03/17 11:29 (Xylocaine 1% Inj (50 ml)) 10 ml UNSCH X1 PRN INFIL 09/29/17 11:30 10/01/17 11:29 (Muri-Lube Oil) 10 ml UNSCH PRN TOPICAL 09/29/17 11:30 Oxytocin 500 ml @ 0 mls/hr TITRATE PRN IV 09/29/17 11:30 09/29/17 12:20 Miscellaneous Information No systemic narcotics to be given except... UNSCH PRN .XX 09/29/17 16:00 09/30/17 15:59 Miscellaneous Information DO NOT ADMINISTER ANY ANTICOAGUL... UNSCH PRN .XX 09/29/17 16:00 09/30/17 15:59 Fentanyl/ Bupivacaine HCl 100 ml @ 0 mls/hr TITRATE EPIDURAL 4/20/18 16:00 09/29/17 18:46 (ePHEDrine/NS 25 MG/5 ML SYR) 10 mg UNSCH PRN IV PUSH 09/29/17 16:00 09/30/17 15:59 (NS Flush) 2 ml BID IV FLUSH 09/29/17 21:00 (NS Flush) 2 ml UNSCH PRN IV FLUSH 09/29/17 18:30 (Tylenol) 650 mg Q4H PRN PO 09/29/17 18:30 (Percocet 5-325 Mg) 1 tab Q4H PRN PO 09/29/17 18:30 09/30/17 01:04 (Percocet 5-325 Mg) 2 tab Q4H PRN PO 09/29/17 18:30 09/30/17 05:32 (Americaine 20% Top Spr) 1 spray Q4H PRN TOPICAL 09/29/17 18:30 09/29/17 21:27 (Tucks Pads) 1 applic QID PRN TOPICAL 09/29/17 18:30 09/29/17 21:27 (Margareth-Colace) 2 tab Q12H PRN PO 09/29/17 18:30 (Ambien) 5 mg HS PRN PO 09/29/17 18:30 (Mag-Al Plus Susp Liq) 15 ml Q8H PRN PO 09/29/17 18:30 (Zofran Odt) 4 mg Q6H PRN PO 09/29/17 18:30 (Motrin) 600 mg Q6H PO 09/30/17 10:30 (Nabil Sanchez MD R2) Assessment/Plan Assessment and Plan 26y/o who is PPD# 1 s/p . -Continue routine care. -Percocet and Motrin PRN pain. Will schedule motrin due to back spasms. Ordered heating pad as well. -Encouraged OOB. Advised pelvic rest for 6 wks. -Will need a f/u appt. within 6 wks. -Re: ctrl, she would like tubal ligation. -D/c likely tomorrow sdw Dr. Moran (Nabil Sanchez MD R2) Attending Attestation Patient seen, examined, and discussed with Dr Sanchez. I agree with assessment and management as documented and discussed with me. Patient reports back pain, muscle spasms. Change regimen as ordered by Dr Sanchez. Otherwise, doing well (Lolly Moran MD) Nabil Sanchez MD R2 Sep 30, 2017 09:51 Lolly Moran MD Sep 30, 2017 15:38
--- NOTE | 2017-09-30 09:56 | HHI.DCPOC ---
Discharge Care Plan Diagnosis: (1) care following vaginal delivery Report Symptoms to Your Doctor -Temperature above 100.5 degrees -Redness, of incision or excessive or foul smelling drainage -Unusual pain or calf pain -Increased vaginal bleeding -Painful or difficulty urinating -Feelings of extreme sadness or anxiety after 2 weeks Goals to Promote Your Health * To prevent worsening of your condition and complications * To maintain your health at the optimal level Directions to Meet Your Goals Take your medications as prescribed Follow your dietary instruction Follow activity as directed Ensure plenty of rest for recovery Drink fluids for hydration Keep your appointments as scheduled Take your immunizations and boosters as scheduled If your symptoms worsen call your PCP, if no PCP go to Urgent Care Center or Emergency Room Smoking is Dangerous to Your Health. Avoid second hand smoke Call the 24-hour crisis hotline for domestic abuse at Nabil Sanchez MD R2 Sep 30, 2017 09:56
[2017-09-30] MEDS ORDERED: IBUP-232 PO (09:57)
[2017-09-30] MEDS ORDERED: PERI PO (09:57)
[2017-09-30] MEDS: IBUPROFEN 600 MG TAB PO SCH ×2 (10:29→17:32)
[2017-09-30] MEDS ORDERED: IBUPROFEN 800 MG TAB PO SCH (10:30)
[2017-09-30 19:58] VITALS: BP 117/63; PULSE 66; RESP 18; TEMP 97.8
[2017-10-01] MEDS: oxyCODONE/ACETAMINOPHEN 5 MG/325 MG TAB PO PRN ×2 (00:22→06:14)
[2017-10-01] MEDS: IBUPROFEN 600 MG TAB PO SCH ×2 (00:22→06:15)
[2017-10-01 08:10] VITALS: BP 134/75; PULSE 87; RESP 16; TEMP 98.2
--- NOTE | 2017-10-01 09:55 | HHI.OB ---
Subjective Post Day: 2 Remarks Pt seen and examined this morning. day # 2 AFVSS overnight. Patient again endorses lower back pain at epidural site with spasm. She states that while she does ambulate, her back continues to hurt. Decreased lochia. Denies dysuria. No breast tenderness. She is feeding the baby via breast. Appetite good. No nausea or vomiting. Patient has not yet had a bowel movement , but does endorse bowel gas. Ambulating well. Denies calf pain or shortness of breath. Otherwise, she is doing well this morning and has no other concerns. (Ricky Johnson MD R2) Objective Vitals/I&O Vital Signs Date Time Temp Pulse Resp B/P (MAP) Pulse Ox O2 Delivery O2 Flow Rate FiO2 09/30/17 19:58 97.8 66 18 117/63 (81) Objective Remarks GENERAL: Well-nourished, well-developed patient. CARDIOVASCULAR: Regular rate and rhythm without murmurs, gallops, or rubs. RESPIRATORY: Breath sounds equal bilaterally. No accessory muscle use. ABDOMEN/GI: Abdomen soft, non-tender. Fundus: Firm, non-tender at umbilicus. GENITOURINARY: Light to moderate bleeding. BACK: Paraspinal tenderness bilaterally. Muscle spasms present. EXTREMITIES: No cyanosis or edema, non-tender, without signs of DVT. Medications and IVs Current Medications Medications (Trade) Dose Ordered Sig/Leoncio Route Start Time Stop Time Status Last Admin Lactated Ringer's 1,000 ml @ 125 mls/hr Q8H IV 09/29/17 11:30 09/29/17 11:48 Lactated Ringer's 1,000 ml @ 3,000 mls/hr Q20M PRN IV 09/29/17 11:30 Sodium Chloride 500 ml @ 1,000 mls/hr ONCE PRN IV 09/29/17 11:30 10/02/17 11:29 Sodium Chloride 1,000 ml @ 100 mls/hr Q10H PRN IV 09/29/17 11:50 (Xylocaine 1% Inj (50 ml)) 0.1 ml UNSCH X1 PRN I-DERMAL 09/29/17 11:30 10/02/17 11:29 (Bicitra Liq) 30 ml PLATING INSPECTOR PO 09/29/17 11:30 10/03/17 11:29 (Xylocaine 1% Inj (50 ml)) 10 ml UNSCH X1 PRN INFIL 09/29/17 11:30 10/01/17 11:29 (Muri-Lube Oil) 10 ml UNSCH PRN TOPICAL 09/29/17 11:30 Oxytocin 500 ml @ 0 mls/hr TITRATE PRN IV 09/29/17 11:30 09/29/17 12:20 Fentanyl/ Bupivacaine HCl 100 ml @ 0 mls/hr TITRATE EPIDURAL 09/29/17 16:00 09/29/17 18:46 (NS Flush) 2 ml BID IV FLUSH 09/29/17 21:00 (NS Flush) 2 ml UNSCH PRN IV FLUSH 09/29/17 18:30 (Tylenol) 650 mg Q4H PRN PO 09/29/17 18:30 (Percocet 5-325 Mg) 1 tab Q4H PRN PO 09/29/17 18:30 09/30/17 01:04 (Percocet 5-325 Mg) 2 tab Q4H PRN PO 09/29/17 18:30 10/01/17 06:14 (Americaine 20% Top Spr) 1 spray Q4H PRN TOPICAL 09/29/17 18:30 09/29/17 21:27 (Tucks Pads) 1 applic QID PRN TOPICAL 09/29/17 18:30 09/29/17 21:27 (Margareth-Colace) 2 tab Q12H PRN PO 09/29/17 18:30 (Ambien) 5 mg HS PRN PO 09/29/17 18:30 (Mag-Al Plus Susp Liq) 15 ml Q8H PRN PO 09/29/17 18:30 (Zofran Odt) 4 mg Q6H PRN PO 09/29/17 18:30 (Motrin) 600 mg Q6H PO 09/30/17 10:30 10/01/17 06:15 (Ricky Johnson MD R2) Assessment/Plan Assessment and Plan 26y/o who is PPD# 2 s/p . -Continue routine care. -Motrin PRN pain. Schedule Motrin due to back spasms. Ordered heating pad as well. Patient encouraged to continue Motrin and heating pad upon discharge home as well as increased ambulation and hydration to assist with spasm. Patient to follow-up with clinic if back pain continues to increase or if other symptoms present including but not limited to any vision changes, headaches, incontinence, paralysis or other neurologic symptom. -Encouraged OOB. Advised pelvic rest for 6 wks. -Will need a f/u appt. within 6 wks. -Re: ctrl, she would like tubal ligation. -D/c today with baby DW: Dr. Moran Discharge Planning Today (Ricky Johnson MD R2) Attending Attestation Patient seen and examined, discussed with Dr Johnson. I agree with assessment and management as documented and discussed with me. No new concerns; back pain a little improved. Discharge home today. (Lolly Moran MD) Ricky Johnson MD R2 Oct 01, 2017 09:54 Lolly Moran MD Oct 01, 2017 15:11
[2017-10-01] MEDS: WITCH HAZEL 50%/GLYCERIN 12.5% 40 PAD JAR TOPICAL PRN (11:15)
== END 2017-10-01 11:23 | disposition home or self-care (01) | DRG 774 ==
LOC: HPND 09:18 → H2EB 10:44 → H1EA 21:25
PROVIDERS: ADMIT Family Medicine; ATTEND Family Medicine
PROC: 10E0XZZ Delivery of Products of Conception, External Approach (ICD-10-PCS; principal; 2017-09-29)
PROC: 3E033VJ Introduction of Other Hormone into Peripheral Vein, Percutaneous Approach (ICD-10-PCS; 2017-09-29)
PROC: 10907ZC Drainage of Amniotic Fluid, Therapeutic from Products of Conception, Via Natural or Artificial Opening (ICD-10-PCS; 2017-09-29)
PROC: 3E0R3BZ Introduction of Anesthetic Agent into Spinal Canal, Percutaneous Approach (ICD-10-PCS; 2017-09-29)
PROC: 00HU33Z Insertion of Infusion Device into Spinal Canal, Percutaneous Approach (ICD-10-PCS; 2017-09-29)
DX: O41.03X0 Oligohydramnios, third trimester, not applicable or unspecified (principal); O48.0 Post-term pregnancy; O90.89 Other complications of the puerperium, not elsewhere classified; M62.830 Muscle spasm of back; Z3A.40 40 weeks gestation of pregnancy; Z37.0 Single live birth
CPT/HCPCS: 76816; 76818; 80307; 81001; 85025; 86900; 86901; G0481; J2590; J3010; J3370; J7050; J7120